=== PATIENT | male | born 1955 | race Caucasian/White ===

== ENCOUNTER 2018-04-13 18:51 | Emergency (ER) | payer OTHER ==
[2018-04-13 23:58] LABS: ADD MAN DIFF? NO
[2018-04-14 00:12] LABS: WHITE BLOOD COUNT 6.6 10^3/ul (4.8-10.8)
[2018-04-14 00:12] LABS: BASOPHILS % 0.6 % (0.0-2.0); EOSINOPHILS # 0.3 10^3/ul (0.0-0.5); HEMATOCRIT 39.8 % (42.0-52.0); HEMOGLOBIN 13.9 g/dl (14.0-18.0); LYMPHOCYTES # 2.5 10^3/ul (0.8-2.9); LYMPHOCYTES % 38.6 % (15.0-51.0); MEAN CORPUSCULAR HEMOGLOBIN 30.7 pg (29.0-33.0); MEAN CORPUSCULAR HGB CONC 34.9 g/dl (32.0-37.0); MEAN CORPUSCULAR VOLUME 87.9 fl (82.0-101.0); MEAN PLATELET VOLUME 9.3 fl (7.4-10.4); MONOCYTE # 0.6 10^3/ul (0.3-0.9); MONOCYTES % 8.5 % (0.0-11.0); NEUTROPHIL # 3.1 10^3/ul (1.6-7.5); NEUTROPHILS % 47.8 % (39.0-77.0); PLATELET COUNT 197 10^3/UL (140-415); RED BLOOD COUNT 4.53 10^6/ul (4.70-6.10); RED CELL DISTRIBUTION WIDTH 11.7 % (11.5-14.5)
[2018-04-14 00:24] LABS: ALANINE AMINOTRANSFERASE 33 IU/L (13-69); ALBUMIN 4.4 g/dl (3.3-4.9); ALBUMIN/GLOBULIN RATIO 1.83; ALKALINE PHOSPHATASE 50 IU/L (42-121); ANION GAP 7 (5-13); ASPARTATE AMINO TRANSFERASE 27 IU/L (15-46); BILIRUBIN,INDIRECT 0.6 mg/dl (0-1.1); BILIRUBIN,TOTAL 0.6 mg/dl (0.2-1.3); BLOOD UREA NITROGEN 17 mg/dl (7-20); CALCIUM 9.4 mg/dl (8.4-10.2); CARBON DIOXIDE 32 mmol/L (21-31); CHLORIDE 101 mmol/L (97-110); Estimated GFR > 60 mL/min (>60); GLUCOSE 101 mg/dl (70-220); POTASSIUM 3.9 mmol/L (3.5-5.1); SODIUM 140 mmol/L (135-144); TOTAL PROTEIN 6.8 g/dl (6.1-8.1)
[2018-04-14 00:36] LABS: B-TYPE NATRIURETIC PEPTIDE 129 PG/ML (0-125); TROPONIN-I < 0.012 ng/ml (0.000-0.120)
[2018-04-14] MEDS ORDERED: ACETAMINOPHEN 325 MG TAB PO (02:00)
[2018-04-14] MEDS ORDERED: ONDANSETRON 4 MG INJ IV (02:00)
[2018-04-14] MEDS ORDERED: HYDROmorphONE 0.5 MG/0.5 ML SYG IV (03:00)
[2018-04-14 06:22] LABS: TROPONIN-I < 0.012 ng/ml (0.000-0.120)
[2018-04-14] MEDS: SOD CHLORIDE 0.9% 1,000 ML IV (11:32)
[2018-04-14] MEDS ORDERED: ATORVASTATIN 20 MG TAB PO (21:00)
== END 2018-04-14 17:12 | disposition home or self-care (01) ==
LOC: E/R 18:51
DX: R55 Syncope and collapse (principal); Z87.891 Personal history of nicotine dependence
CPT/HCPCS: 36415; 71045; 80053; 83880; 84484; 85025; 93005; 93306; 99285-25